=== PATIENT | male | born 1980 | race African-American/Black ===

== ENCOUNTER 2018-02-25 17:03 | Emergency (ER) | payer OTHER ==
[~2018-02-25] VITALS: Ht 195.6 cm; Wt 97.0 kg
[~2018-02-25 17:03] MED LIST: AMOXICILLIN500 MG OR; CEPACOL2 MG MT; KEFLEX500 MG OR; METRONIDAZOLE500 MG PO; NAPROSYN500 MG OR; NO HOME MEDS; PENICILLN VK500 M1 OR; PERCOCET 5/325M1 TAB OR; THERAFLU FLU OR; TRAMADOL HCL50 MG OR; TYLENOL # 31 TAB OR; ULTRAM50 MG OR
[2018-02-25 17:15] VITALS: BP 139/100
[2018-02-25 17:39] LABS: URINE BILIRUBIN - DIPSTICK NEGATIVE (NEGATIVE); URINE BLOOD DIPSTICK LARGE (NEGATIVE); URINE COLOR YELLOW; URINE GLUCOSE - DIPSTICK NEGATIVE (NEGATIVE); URINE KETONE NEGATIVE (NEGATIVE); URINE LEUK ESTERASE NEGATIVE (Negative); URINE NITRITE - DIPSTICK NEGATIVE (Negative); URINE PROTEIN - DIPSTICK NEGATIVE (NEG-TRACE); URINE UROBILINOGEN - DIPSTICK 0.2 E.U./dL (0.2)
[2018-02-25 17:40] LABS: URINE CLARITY HAZY
[2018-02-25 17:45] LABS: URINE RBC 25-50 RBC/hpf (0-5)
[2018-02-25 17:56] LABS: HEMATOCRIT 40.6 % (39.0-50.0); HEMOGLOBIN 14.1 g/dl (14.0-18.0); IMMATURE GRANULOCYTES 0.3 % (0.0-1.0); MEAN CELL VOLUME 85.5 fL CALC (80.0-100.0); MEAN CORPUSCULAR HGB 29.7 pG CALC (26.0-32.0); MEAN CORPUSCULAR HGB CONC 34.7 g/L CALC (32.0-36.0); NEUT# 3.46 thou/uL (1.82-7.42); RED BLOOD COUNT 4.75 mill/uL (4.70-6.10); RED CELL DISTRI WIDTH 14.6 % (11.5-15.5)
[2018-02-25 18:11] LABS: ALKALINE PHOSPHATASE 102 u/l (38-126); ANION GAP 12 (6-22 (CALC)); BILIRUBIN, TOTAL 0.3 mg/dL (0.0-1.4); BUN 15 mg/dL (9-20); BUN/CREATININE RATIO 16 (12-20 (CALC)); CARBON DIOXIDE 23 mmol/l (22-30); CHLORIDE 109 mmol/l (95-108); GFR > 60 ML/MIN (>=60 (CALC)); GFR FOR AFR.AMER. > 60 ML/MIN (>=60 (CALC)); POTASSIUM 4.7 mmol/l (3.5-5.1); SGOT/AST 22 u/l (17-59); SGPT/ALT 37 u/l (21-72); SODIUM 139 mmol/l (137-146); TOTAL PROTEIN 7.1 g/dL (6.3-8.2)
[2018-02-25] MEDS ORDERED: CIPROFLOXACN500 MG PO (18:48)
== END 2018-02-25 19:13 | disposition home or self-care (01) | DRG 694 ==
LOC: ED 17:03
DX: N20.0 Calculus of kidney (principal); F17.210 Nicotine dependence, cigarettes, uncomplicated